=== PATIENT | male | born 1965 | race African-American/Black ===

== ENCOUNTER 2020-12-11 09:52 | Emergency (ER) | payer BC ==
[~2020-12-11] VITALS: Ht 190.5 cm; Wt 131.8 kg
[~2020-12-11 09:52] MED LIST: CARV25TA2 PO; CYAN250010 PO; HYDR-4069 PO; IRBE1TAB33 PO; MULT-1179 PO; NIFE30TA8 PO; PANT-47 PO
[2020-12-11 10:13] VITALS: BP 144/103
== END 2020-12-11 12:32 | disposition home or self-care (01) ==
LOC: ER 09:53
DX: U07.1 COVID-19 (principal); R05.9 Cough, unspecified; R53.83 Other fatigue; H92.09 Otalgia, unspecified ear; I10 Essential (primary) hypertension; E11.9 Type 2 diabetes mellitus without complications; Z88.0 Allergy status to penicillin; Z88.8 Allergy status to other drugs, medicaments and biological substances; Z79.899 Other long term (current) drug therapy
CPT/HCPCS: 87635; 99283; C9803

== ENCOUNTER 2021-12-16 02:06 | Inpatient (IN) | payer BC ==
[~2021-12-16] VITALS: Ht 190.5 cm; Wt 132.0 kg
[2021-12-16] MEDS ORDERED: normal saline 1000ML IV soln IVB ONE (02:10)
[2021-12-16 03:17] LABS: BASOPHILS % (AUTO) 0.2 % (0-1); EOSINOPHILS % (AUTO) 0.1 % (0-6); HEMATOCRIT 32.9 % (42.0-52.0); HEMOGLOBIN 10.8 g/dl (14.0-17.9); LYMPHOCYTES # (AUTO) 1.3 X10'3 (1.1-4.8); LYMPHOCYTES % (AUTO) 12.8 % (21-51); MEAN CORPUSCULAR HEMOGLOBIN 27.7 PG (27.0-31.0); MEAN CORPUSCULAR HGB CONC 32.9 g/dL (33.0-36.5); MEAN CORPUSCULAR VOLUME 84.1 FL (78-98); MEAN PLATELET VOLUME 8.8 FL (7.4-10.4); MONOCYTES # (AUTO) 0.9 X10'3 (0-0.9); MONOCYTES % (AUTO) 8.8 % (2-12); NEUTROPHILS # (AUTO) 8.1 X10'3 (1.8-7.7); NEUTROPHILS % (AUTO) 78.1 % (42-75); PLATELET COUNT 187 X10'3 (140-440); RED BLOOD COUNT 3.91 X10'6 (4.70-6.10); RED CELL DISTRIBUTION WIDTH 15.6 % (11.5-14.5); WHITE BLOOD COUNT 10.3 X10'3 (4.5-11.0)
[2021-12-16 03:24] LABS: ALANINE AMINOTRANSFERASE 24 U/L (12-78); ALBUMIN 2.8 G/DL (3.4-5.0); ALBUMIN/GLOBULIN RATIO 0.9 (1.1-1.5); ALKALINE PHOSPHATASE 52 IU/L (46-116); ANION GAP 8 (8-16); ASPARTATE AMINO TRANSFERASE 20 U/L (10-37); BILIRUBIN,TOTAL 0.5 MG/DL (0.1-1.0); BLOOD UREA NITROGEN 19 MG/DL (7-18); BUN/CREATININE RATIO 10.7 (5.4-32.0); CALCIUM 7.8 MG/DL (8.5-10.1); CHLORIDE 106 MMOL/L (99-107); CREATININE 1.78 MG/DL (0.60-1.10); GLUCOSE 235 MG/DL (70-104); POTASSIUM 3.4 MMOL/L (3.5-5.1); SODIUM 141 MMOL/L (135-145); TOTAL CARBON DIOXIDE 26.9 MMOL/L (24-32); TOTAL PROTEIN 5.9 G/DL (6.4-8.2); eGFR 48 ML/MIN
[2021-12-16] MEDS ORDERED: GLIM4TAB7 PO (03:36)
[2021-12-16] MEDS ORDERED: METF-437 PO (03:36)
[2021-12-16] MEDS ORDERED: PRAS25CA PO (03:36)
[2021-12-16] MEDS ORDERED: ISOS30TA9 PO (03:36)
[2021-12-16] MEDS ORDERED: [UNRECOGNIZED DRUG - OTHER] (03:36)
[2021-12-16] MEDS ORDERED: CARV-50 PO (03:36)
[2021-12-16] MEDS ORDERED: ALLO100T PO (03:36)
--- NOTE | 2021-12-16 04:37 | NUR ---
DR Cavanaugh at bedside consulting for admission
[2021-12-16] MEDS ORDERED: HYDROcodone/acetaminophen 5mg/325mg tablet PO PRN (05:05)
[2021-12-16] MEDS ORDERED: ondansetron/PF 4mg/2ml inj IV PRN (05:05)
[2021-12-16] MEDS ORDERED: morphine 2 MG/ML inj. syringe IV PRN (05:05)
[2021-12-16] MEDS ORDERED: potassium Cl 20 mEq SR tablet PO PRN (05:05)
[2021-12-16] MEDS ORDERED: magnesium Cl slow-release 64mg tablet PO PRN (05:05)
[2021-12-16] MEDS ORDERED: acetaminophen 325mg tablet PO PRN ×2 (05:05)
[2021-12-16] MEDS ORDERED: magnesium 4gm in 100ml NS 100 ML IV PRN (05:05)
[2021-12-16] MEDS ORDERED: potassium Cl 40MEQ/1/2NS 520ml 520 ML IV PRN (05:05)
[2021-12-16] MEDS ORDERED: insulin Lispro (HumaLOG) vial - multi-dose SQ SCH (05:10)
[2021-12-16] MEDS ORDERED: DEXTROSE 15 GM of carb/4 tabs (each vial/BOTTLE has 4 tablets) PO PRN ×2 (05:10)
[2021-12-16] MEDS ORDERED: dextrose 50%-water 50ml dispensing syringe IV PRN ×2 (05:10)
[2021-12-16] MEDS ORDERED: MESSAGE TO PHARMACY PO ONE (05:10)
[2021-12-16] MEDS ORDERED: glucagon, human recombinant 1mg kit SUBCUT PRN (05:10)
--- NOTE | 2021-12-16 05:19 | NUR ---
BACK FROM CT
[2021-12-16] MEDS: normal saline 1000ml 1,000 ML IV SCH ×2 (05:23→15:47)
[2021-12-16] MEDS ORDERED: ISOS60TA71 PO (05:49)
[2021-12-16] MEDS ORDERED: PANT40TA54 PO (05:49)
--- NOTE | 2021-12-16 06:51 | NUR ---
Pt is sleeping with at the bedside at this time. Pt has stable VS and no distress noted at this time.
[2021-12-16] MEDS: K and/or MAG REPLACEMENT MC SCH ×2 (07:31→20:00)
[2021-12-16] MEDS: potassium Cl 20 mEq SR tablet PO PRN ×2 (07:59→20:53)
[2021-12-16] MEDS: pantoprazole 40MG/NS 100ML BAG 100 ML IV SCH ×2 (07:59→20:20)
[2021-12-16] MEDS: metroNIDAZOLE-Flagyl 500mg/NS 100 ML IV SCH ×2 (07:59→17:16)
[2021-12-16] MEDS: hydrALAZINE 25 MG tablet PO SCH ×2 (08:00→20:19)
[2021-12-16] MEDS: ciprofloxacin lact 400MG/200ML 200 ML IV SCH ×2 (09:06→20:55)
[2021-12-16] MEDS: allopurinol 100mg tablet PO SCH (10:15)
[2021-12-16] MEDS: NIFEdipine XL 30mg tablet PO SCH ×2 (10:15→20:24)
[2021-12-16] MEDS: carVEDilol 12.5mg tablet PO SCH ×2 (10:15→20:23)
[2021-12-16] MEDS: isosorbide mononitrate 30mg tab.SR.24H PO SCH (10:15)
--- NOTE | 2021-12-16 14:10 | NUR ---
Received report from ED RNKaylie
--- NOTE | 2021-12-16 14:30 | NUR ---
Complete physical assessment completed
[2021-12-16 14:35] VITALS: BP 167/78
[2021-12-16 18:00] VITALS: BP 117/67
--- NOTE | 2021-12-16 18:20 | NUR ---
Problems reprioritized. Patient report given, questions answered & plan of care reviewed with Lizabeth Barone RN.
--- NOTE | 2021-12-16 18:30 | NUR ---
Patient in room [facility]. I have received report from JADEN JERONIMO and had the opportunity to ask questions and assume patient care.
[2021-12-16] MEDS ORDERED: PEG 3350/Na sulf,bicarb,Cl/KCl oral sol 4 liter bottle PO ONE (19:45)
[2021-12-16 20:34] LABS: HEMATOCRIT 26.6 % (42.0-52.0); HEMOGLOBIN 8.8 g/dl (14.0-17.9); MEAN CORPUSCULAR HEMOGLOBIN 27.7 PG (27.0-31.0); MEAN CORPUSCULAR HGB CONC 33.1 g/dL (33.0-36.5); MEAN CORPUSCULAR VOLUME 83.5 FL (78-98); MEAN PLATELET VOLUME 8.2 FL (7.4-10.4); PLATELET COUNT 182 X10'3 (140-440); RED BLOOD COUNT 3.19 X10'6 (4.70-6.10); RED CELL DISTRIBUTION WIDTH 15.8 % (11.5-14.5)
[2021-12-16] MEDS ORDERED: insulin glargine (Lantus) pen - multi-dose SQ SCH (21:00)
[2021-12-16] MEDS ORDERED: temazepam 15mg capsule PO PRN (21:00)
[2021-12-16 22:00] VITALS: BP 125/74
[2021-12-17] VITALS (11 sets, daily range): BP systolic 123–148; BP diastolic 61–92
[2021-12-17] MEDS: metroNIDAZOLE-Flagyl 500mg/NS 100 ML IV SCH ×2 (00:03→12:40)
[2021-12-17 00:44] LABS: URINE AMPHETAMINE SCREEN NEGATIVE (Neg); URINE BARBITUATE SCREEN NEGATIVE (Neg); URINE BENZODIAZEPINES SCREEN NEGATIVE (Neg); URINE CANNABINOID SCREEN NEGATIVE (Neg); URINE COCAINE SCREEN NEGATIVE (Neg); URINE METHADONE SCREEN NEGATIVE (Neg); URINE OPIATE SCREEN NEGATIVE (Neg); URINE PHENCYCLIDINE SCREEN NEGATIVE (Neg)
[2021-12-17 01:03] LABS: CLARITY,URINE CLEAR (Clear); GLUCOSE, URINE NEGATIVE (Neg); KETONES,URINE NEGATIVE (Neg); LEUKOCYTE ESTERASE ,URINE NEGATIVE (Neg); NITRITES, URINE NEGATIVE (Neg); OCCULT BLOOD,URINE NEGATIVE (Neg); PH,URINE 5.5 (4.8-8.0); PROTEIN,URINE 30 mg/dl (Neg); UROBILINOGEN,URINE 0.2 E.U/dL (0.2-1.0)
[2021-12-17] MEDS: normal saline 1000ml 1,000 ML IV SCH ×2 (01:05→11:05)
[2021-12-17 01:24] LABS: COLOR,URINE AMBER (Yellow); UA COLLECTION TYPE CLN CATCH MIDSTREAM
[2021-12-17 01:27] LABS: CAL OXALATE CRYSTALS 1+ /HPF (NEGATIVE); RBC,URINE 0-2 /HPF (0-2); WBC,URINE 0-4 /HPF (0-4)
[2021-12-17 01:29] LABS: BACTERIA,URINE NONE SEEN /HPF (Neg); MUCUS STRANDS MODERATE /LPF (Neg); SQUAMOUS EPITHELIAL CELL,UR NONE SEEN /LPF (FEW)
[2021-12-17 02:00] LABS: HEMATOCRIT 28.4 % (42.0-52.0); HEMOGLOBIN 9.7 g/dl (14.0-17.9); MEAN CORPUSCULAR HEMOGLOBIN 28.4 PG (27.0-31.0); MEAN CORPUSCULAR HGB CONC 34.2 g/dL (33.0-36.5); MEAN PLATELET VOLUME 8.4 FL (7.4-10.4); PLATELET COUNT 193 X10'3 (140-440); RED BLOOD COUNT 3.42 X10'6 (4.70-6.10); RED CELL DISTRIBUTION WIDTH 15.6 % (11.5-14.5); WHITE BLOOD COUNT 10.7 X10'3 (4.5-11.0)
--- NOTE | 2021-12-17 06:20 | NUR ---
Patient in room [facility]. I have received report from Lizabeth Barone RN and had the opportunity to ask questions and assume patient care.
--- NOTE | 2021-12-17 06:25 | NUR ---
Problems reprioritized. Patient report given, questions answered & plan of care reviewed with JADEN RN.
[2021-12-17 08:31] LABS: BASOPHILS % (AUTO) 0.5 % (0-1); EOSINOPHILS # (AUTO) 0.2 X10'3 (0-0.9); EOSINOPHILS % (AUTO) 2.4 % (0-6); HEMOGLOBIN 8.5 g/dl (14.0-17.9); LYMPHOCYTES # (AUTO) 2.3 X10'3 (1.1-4.8); LYMPHOCYTES % (AUTO) 29.6 % (21-51); MEAN CORPUSCULAR HEMOGLOBIN 28.2 PG (27.0-31.0); MEAN CORPUSCULAR HGB CONC 33.9 g/dL (33.0-36.5); MEAN CORPUSCULAR VOLUME 83.2 FL (78-98); MEAN PLATELET VOLUME 8.3 FL (7.4-10.4); MONOCYTES % (AUTO) 13.1 % (2-12); NEUTROPHILS # (AUTO) 4.2 X10'3 (1.8-7.7); NEUTROPHILS % (AUTO) 54.4 % (42-75); PLATELET COUNT 166 X10'3 (140-440); RED CELL DISTRIBUTION WIDTH 15.3 % (11.5-14.5); WHITE BLOOD COUNT 7.8 X10'3 (4.5-11.0)
[2021-12-17 08:46] LABS: ALANINE AMINOTRANSFERASE 25 U/L (12-78); ALBUMIN 2.7 G/DL (3.4-5.0); ALBUMIN/GLOBULIN RATIO 0.9 (1.1-1.5); ALKALINE PHOSPHATASE 43 IU/L (46-116); ANION GAP 5 (8-16); ASPARTATE AMINO TRANSFERASE 17 U/L (10-37); BILIRUBIN,TOTAL 0.3 MG/DL (0.1-1.0); BLOOD UREA NITROGEN 18 MG/DL (7-18); BUN/CREATININE RATIO 12.9 (5.4-32.0); CALCIUM 7.8 MG/DL (8.5-10.1); CHLORIDE 107 MMOL/L (99-107); CREATININE 1.39 MG/DL (0.60-1.10); GLUCOSE 127 MG/DL (70-104); MAGNESIUM 1.8 MG/DL (1.5-2.4); PHOSPHORUS 2.7 MG/DL (2.3-4.5); POTASSIUM 3.3 MMOL/L (3.5-5.1); SODIUM 142 MMOL/L (135-145); TOTAL CARBON DIOXIDE 30.2 MMOL/L (24-32); TOTAL PROTEIN 5.6 G/DL (6.4-8.2); eGFR 64 ML/MIN
[2021-12-17] MEDS: ciprofloxacin lact 400MG/200ML 200 ML IV SCH (09:04)
[2021-12-17] MEDS: hydrALAZINE 25 MG tablet PO SCH (09:07)
[2021-12-17] MEDS: isosorbide mononitrate 30mg tab.SR.24H PO SCH (09:08)
[2021-12-17] MEDS: NIFEdipine XL 30mg tablet PO SCH (09:08)
[2021-12-17] MEDS: carVEDilol 12.5mg tablet PO SCH (09:09)
[2021-12-17] MEDS: allopurinol 100mg tablet PO SCH (09:09)
[2021-12-17] MEDS ORDERED: fentaNYL/PF 50MCG/1 ML 2ML syringe ONE (10:13)
[2021-12-17] MEDS ORDERED: MIDAZolam 1 MG/ML 5ML VIAL ONE (10:13)
[2021-12-17] MEDS ORDERED: LIDOcaine Viscous 15ml cup ONE (10:13)
[2021-12-17] MEDS: K and/or MAG REPLACEMENT MC SCH (10:49)
[2021-12-17 11:26] LABS: HEMOGLOBIN A1C 6.7 % (4.5-6.2)
[2021-12-17] MEDS: pantoprazole 40MG/NS 100ML BAG 100 ML IV SCH (12:20)
[2021-12-17] MEDS: potassium Cl 20 mEq SR tablet PO PRN (12:43)
[2021-12-17 14:13] LABS: BASOPHILS % (AUTO) 0.3 % (0-1); EOSINOPHILS # (AUTO) 0.2 X10'3 (0-0.9); EOSINOPHILS % (AUTO) 2.1 % (0-6); HEMATOCRIT 24.3 % (42.0-52.0); HEMOGLOBIN 8.1 g/dl (14.0-17.9); LYMPHOCYTES # (AUTO) 2.1 X10'3 (1.1-4.8); LYMPHOCYTES % (AUTO) 25.7 % (21-51); MEAN CORPUSCULAR HGB CONC 33.4 g/dL (33.0-36.5); MEAN CORPUSCULAR VOLUME 83.8 FL (78-98); MEAN PLATELET VOLUME 8.6 FL (7.4-10.4); NEUTROPHILS # (AUTO) 4.9 X10'3 (1.8-7.7); NEUTROPHILS % (AUTO) 59.9 % (42-75); PLATELET COUNT 165 X10'3 (140-440); RED CELL DISTRIBUTION WIDTH 15.4 % (11.5-14.5); WHITE BLOOD COUNT 8.2 X10'3 (4.5-11.0)
[2021-12-17] MEDS ORDERED: CIPR-202 PO (14:55)
[2021-12-17] MEDS ORDERED: LACT1CAP26 PO (14:55)
[2021-12-17] MEDS ORDERED: METR-159 PO (14:55)
[2021-12-17] MEDS ORDERED: POLY17PO10 PO (14:55)
--- NOTE | 2021-12-17 18:53 | NUR ---
Student documentation: I have reviewed and agree with all interventions, assessments performed and documented by Tri Wood student RN, Marija Branch RN instructor.
== END 2021-12-17 17:33 | disposition home or self-care (01) | DRG 379 ==
LOC: ER 02:06 → ED HOLD 05:07 → SUR 3N 14:31
PROVIDERS: ADMIT Internal Medicine; ATTEND Family Medicine
PROC: 0DBL8ZZ Excision of Transverse Colon, Via Natural or Artificial Opening Endoscopic (ICD-10-PCS; principal; 2021-12-17)
PROC: 0DBN8ZZ Excision of Sigmoid Colon, Via Natural or Artificial Opening Endoscopic (ICD-10-PCS; 2021-12-17)
PROC: 0DBH8ZZ Excision of Cecum, Via Natural or Artificial Opening Endoscopic (ICD-10-PCS; 2021-12-17)
DX: K57.31 Diverticulosis of large intestine without perforation or abscess with bleeding (principal); E11.22 Type 2 diabetes mellitus with diabetic chronic kidney disease; Z20.822 Contact with and (suspected) exposure to COVID-19; I12.9 Hypertensive chronic kidney disease with stage 1 through stage 4 chronic kidney disease, or unspecified chronic kidney disease; N18.30 Chronic kidney disease, stage 3 unspecified; Z88.0 Allergy status to penicillin; Z91.018 Allergy to other foods
CPT/HCPCS: 36415; 45385; 74176; 80053; 80305; 81001; 82948; 83036; 83605; 83735; 84100; 84145; 84443; 85025; 85027; 86885; 86900; 86901; 87040; 87081; 87635; 97161; 97530; 99152; 99153; 99285; A4620; C1889; C9113; G0378; J0744; J1815; J2250; J3010; J3490; J7030

== ENCOUNTER 2023-03-29 22:12 | Emergency (ER) | payer BC ==
[~2023-03-29] VITALS: Ht 190.5 cm; Wt 129.3 kg
[~2023-03-29 22:12] MED LIST changes: +ALLO100T PO; +CARV-50 PO; -CARV25TA2 PO; +GLIM4TAB7 PO; -HYDR-4069 PO; +HYDR25TA90 PO; +ISOS60TA71 PO; +LACT1CAP26 PO; +METF-437 PO; -PANT-47 PO; +PANT40TA54 PO; +PRAS25CA PO
[2023-03-29 22:16] VITALS: BP 178/102; PULSE 88; RESP 16; TEMP 97.8; O2SAT 98
[2023-03-29 22:56] LABS: BASOPHILS # (AUTO) 0.1 X10'3 (0-0.2); BASOPHILS % (AUTO) 0.5 % (0-1); EOSINOPHILS # (AUTO) 0.1 X10'3 (0-0.9); EOSINOPHILS % (AUTO) 0.7 % (0-6); HEMATOCRIT 38.1 % (42.0-52.0); HEMOGLOBIN 12.4 g/dl (14.0-17.9); LYMPHOCYTES # (AUTO) 2.5 X10'3 (1.1-4.8); LYMPHOCYTES % (AUTO) 19.1 % (21-51); MEAN CORPUSCULAR HEMOGLOBIN 26.3 PG (27.0-31.0); MEAN CORPUSCULAR HGB CONC 32.6 g/dL (33.0-36.5); MEAN CORPUSCULAR VOLUME 80.7 FL (78-98); MEAN PLATELET VOLUME 8.1 FL (7.4-10.4); MONOCYTES # (AUTO) 1.1 X10'3 (0-0.9); MONOCYTES % (AUTO) 8.5 % (2-12); NEUTROPHILS # (AUTO) 9.2 X10'3 (1.8-7.7); NEUTROPHILS % (AUTO) 71.2 % (42-75); PLATELET COUNT 291 X10'3 (140-440); RED BLOOD COUNT 4.72 X10'6 (4.70-6.10); RED CELL DISTRIBUTION WIDTH 16.4 % (11.5-14.5)
[2023-03-29 23:02] LABS: ALBUMIN 3.7 G/DL (3.4-5.0); ANION GAP 9 (8-16); BLOOD UREA NITROGEN 17 MG/DL (7-18); BUN/CREATININE RATIO 14.3 (10.0-20.0); CALCIUM 8.7 MG/DL (8.5-10.1); CHLORIDE 105 MMOL/L (99-107); CREATININE 1.19 MG/DL (0.60-1.10); GLUCOSE 167 MG/DL (70-104); LIPASE 27 U/L (16-77); POTASSIUM 3.2 MMOL/L (3.5-5.1); SODIUM 143 MMOL/L (135-145); TOTAL CARBON DIOXIDE 29.5 MMOL/L (24-32); eCRCL 81 ML/MIN; eGFR 76 ML/MIN
[2023-03-30] MEDS ORDERED: HYDR25SU32 RC (01:14)
== END 2023-03-30 01:30 | disposition home or self-care (01) ==
LOC: ER 22:13
DX: D64.9 Anemia, unspecified (principal); E87.6 Hypokalemia; N40.0 Benign prostatic hyperplasia without lower urinary tract symptoms; K64.9 Unspecified hemorrhoids
CPT/HCPCS: 36415; 74176; 80048; 83690; 85025; 99284